=== PATIENT | male | born 1995 | race Asian ===

== ENCOUNTER 2017-12-11 19:02 | Emergency (ER) | payer OTHER ==
[~2017-12-11] VITALS: Ht 175.3 cm; Wt 93.0 kg
[2017-12-11 19:05] VITALS: TEMP 37.4; Ht 175.3 cm; Wt 93.0 kg
[2017-12-11] MEDS ORDERED: IBUPROFEN 600 MG TAB PO STA (19:24)
[2017-12-11] MEDS ORDERED: DIPH1TAB98 PO (19:42)
[2017-12-11 20:14] VITALS: BP 144/79; PULSE 70; O2SAT 98
--- NOTE | 2017-12-12 07:29 | EMERGENCY ROOM VISIT NOTE ---
ED Visit Note First contact with patient: 19:06 Chief Complaint: I hurt my right hamstrings. History of Present Illness: Mr. Walsh is a 22-year-old [place] male who is brought into the ED via ambulance complaining of posterior right thigh pain. Patient reports approximately 1 hour ago he was playing soccer. He reports he was decelerating and making a quick maneuver to the left. He reports he felt a popping sensation in the back of his right thigh and the hamstring muscle group and reports he developed severe pain. He reports he sat down and when he attempted to stand again the pain returned and he had was having difficulty walking. EMS was activated and he was bored into the ED. EMS reports patient was stable and had no acute changes in route. Historically patient reports any previous significant injuries or surgeries to the right hamstring muscle group. Patient currently complains of pain in the mid portion of the biceps femoris muscle. He describes his discomfort at rest as a pulling sensation and rates his discomfort 4/10. When he attempts to flex his knee or hip the pain becomes sharp and he rates his discomfort 6/10. The pain is nonradiating. Pain worsens with palpation and extension of the hip and knee joint and ambulation. He has not identified any alleviating factors related to the pain. He has not had a medication but has using ice for his pain prior to arrival at the hospital. He denies any associated symptoms including back pain, hip pain, anterior thigh pain, knee pain, leg weakness/numbness/tingling. He also denies any previous significant injuries or surgeries to this area. Review of Systems: As noted above in history of present illness. Past Medical History: Patient denies. Current Medications: Benadryl. Allergies to Medications: Patient denies. Social History: Patient is currently university student; he feels safe in his home environment; he denies tobacco use and admits to alcohol use. Physical Examination: Vital Signs: Date Time Temp Pulse Resp B/P (MAP) Pulse Ox O2 Delivery O2 Flow Rate FiO2 12/11/17 20:14 70 144/79 98 12/11/17 19:05 37.4 80 126/68 97 Room Air GENERAL: 22-year-old male in mild to moderate distress due to pain, nontoxic- appearing, afebrile and hemodynamically stable. NEUROLOGICAL: Awake, alert and oriented to person, place and time. Answering questions appropriately and following commands. SKIN: Warm, dry and pink. No soft tissue trauma noted. RIGHT LOWER EXTREMITY: No gross bony deformity. No tenderness over the hip, femur, knee, lower leg or ankle. Mild to moderate tenderness in the mid area of the hamstring muscle group. I do not feel any muscle deficits. There is no local erythema, edema or ecchymosis. Decreased range of motion in hip flexion and knee flexion and full range of motion in all of the movements of the hip and knee without difficulty. Throughout the leg the skin was warm and pink. Capillary refill is brisk. Distal pulses were intact. He was able to distinguish light sensations to all dermatomes. ED Course: Patient is assessed as noted above. Patient's medication list was reviewed. Patient was given ice for pain and comfort as well as 600 mg of ibuprofen by mouth. Patient was put in a hip spica wrap and educated on nonweightbearing crutches. Patient was educated about today's findings and instructed on his treatment plan ; he verbalized understanding and agreement with this plan. Clinical Impression: Right hamstring muscle strain. Disposition: Patient discharged home in stable condition; prior to departure he was reassessed and subjectively reported he was feeling better and rated his discomfort 4/10. Plan: Patient was encouraged alternate ibuprofen and acetaminophen every 3 hours as needed for pain. Patient is encouraged to use ice on areas of pain and/or swelling. Patient was encouraged to use the hip spica nonweightbearing crutches for 3-6 days or until pain-free. Patient was encouraged to follow-up at [facility] for care and treatment in the next 2-3 days and if needed refer to orthopedics. Patient is encouraged to return to the ED for worsening/uncontrolled pain, uncontrolled swelling, leg weakness/numbness/tingling or any new/concerning symptoms.
== END 2017-12-11 20:15 | disposition home or self-care (01) ==
LOC: C.EDD 19:03
DX: S76.311A Strain of muscle, fascia and tendon of the posterior muscle group at thigh level, right thigh, initial encounter (principal); X50.9XXA Other and unspecified overexertion or strenuous movements or postures, initial encounter; Y93.66 Activity, soccer; Z72.89 Other problems related to lifestyle